=== PATIENT | female | born 1955 | race American Indian/Alaskan Native ===

== ENCOUNTER 2018-04-17 20:06 | Emergency (ER) | payer MEDICARE ==
[2018-04-17 20:06] VITALS: BMI 34.2
[2018-04-17] MEDS ORDERED: Iohexol 240 (50 ml) PO ONE (20:44)
[2018-04-17] MEDS ORDERED: Sodium Chloride 0.9% 1,000 ML IV STA (20:45)
[2018-04-17] MEDS ORDERED: Iohexol 240 (50 ml) ONE (21:25)
[2018-04-17 21:35] LABS: BASO # 0.1 K/uL (0.0-0.2); BASO % 0.4 % (0.0-2.0); EOS % 0.3 % (0.0-4.0); LYMPH % 7.6 % (20.0-40.0); MEAN CELL VOLUME 66.4 fl (81.0-99.0); MEAN CORPUSCULAR HEMOGLOBIN 20.9 pg (27.0-31.0); MEAN CORPUSCULAR HGB CONC 31.5 g/dL (33.0-37.0); MEAN PLATELET VOLUME 10.7 fl (7.2-11.7); MONO # 0.4 K/uL (0.0-0.8); MONO % 3.5 % (0.0-10.0); NEUT # 11.3 K/uL (1.8-7.0); NEUT % 88.2 % (50.0-75.0); NRBC % 0.2 % (0.0-0.0); PLATELET COUNT 340 K/uL (130-400); RBC 6.71 Mil/uL (3.80-5.20); RED CELL DISTRIBUTION WIDTH 17.4 % (11.5-14.5); WHITE BLOOD COUNT 12.8 K/uL (4.8-10.8)
[2018-04-17 21:44] LABS: ALBUMIN 4.7 g/dL (3.5-5.0); GFR AFRICAN-AMERICAN > 60; GFR NON-AFRICAN AMERICAN > 60; LIPASE 100 U/L (23-300)
[2018-04-17 21:50] LABS: ALT/SGPT 56 U/L (9-52); AST/SGOT 41 U/L (14-36); BLOOD UREA NITROGEN 22 mg/dl (7-17)
--- NOTE | 2018-04-17 21:50 | ED PDOC ---
HPI: Abdomen Time Seen by Provider: 04/17/18 20:26 Chief Complaint (Nursing): Abdominal Pain Chief Complaint (Provider): Abdominal Pain History Per: Patient History/Exam Limitations: no limitations Onset/Duration Of Symptoms: Hrs Current Symptoms Are (Timing): Still Present Additional Complaint(s): 62 year old female presents to the emergency department with a complaint of an abdominal pain and diarrhea that started around 11am today, 04/17/2018. Reports she had about 20 episodes of watery, non bloody diarrhea with a lot of raw skin in the rectal region due to all of the diarrhea. Associated with nausea, loss of appetite, chills, body aches, and weakness. States when she tries to eat or drink anything it exacerbates the diarrhea and abdominal pain. Patient had ground beef at 9am this morning and thinks that might have been the source although daughter ate the same and is fine. Denies vomiting, recent travel, known sick contacts, or recent antibiotics. PMD: Dr. Macho Doll MD Past Medical History Reviewed: Historical Data, Nursing Documentation, Vital Signs Vital Signs: Last Vital Signs Temp 98 F 04/18/18 01:21 Pulse 95 H 04/18/18 01:21 Resp 16 04/18/18 01:21 BP 160/91 H 04/18/18 01:21 Pulse Ox 96 04/18/18 01:49 - Medical History PMH: HTN - Surgical History Other surgeries: Hysterectomy - Family History Family History: States: No Known Family Hx - Social History Current smoker - smoking cessation education provided: No Ex-Smoker (has not smoked in the last 12 months): Yes (2012) Alcohol: None Drugs: Denies - Home Medications Home Medications: Ambulatory Orders Medication Instructions Recorded Naproxen 1 tab PO Q12 PRN #14 tab 10/05/17 Dicyclomine [Bentyl] 20 mg PO Q12 PRN #20 tab 04/18/18 - Allergies Allergies/Adverse Reactions: Allergies Allergy/AdvReac Type Severity Reaction Status Date / Time shrimp Allergy RASH Verified 04/17/18 20:17 Review of Systems ROS Statement: Except As Marked, All Systems Reviewed And Found Negative (As per HPI, otherwise negative) Constitutional: Positive for: Chills, Weakness (body aches). Negative for: Other (recent tavel, known sick contacts, or recent antibiotics) Gastrointestinal: Positive for: Nausea, Abdominal Pain, Diarrhea, Other (Loss of appetite). Negative for: Vomiting Physical Exam - Reviewed Nursing Documentation Reviewed: Yes Vital Signs Reviewed: Yes - Physical Exam Appears: Positive for: In Acute Distress (mid gastrointestinal distress) Head Exam: Positive for: NORMAL INSPECTION Skin: Positive for: Warm, Dry ENT: Positive for: Normal ENT Inspection (Dry mucous membranes), Pharynx Is ( Clear) Neck: Positive for: Painless ROM, Supple Cardiovascular/Chest: Positive for: Regular Rate, Rhythm. Negative for: Murmur Respiratory: Positive for: Normal Breath Sounds. Negative for: Respiratory Distress Gastrointestinal/Abdominal: Positive for: Soft, Tenderness (Diffuse tenderness to palpation. Worse on the left lower quadrant. ). Negative for: Normal Exam, Mass, Guarding, Rebound, Other (negative [place] and [place] point tenderness) Back: Positive for: Normal Inspection. Negative for: Decreased ROM Extremity: Positive for: Normal ROM. Negative for: Deformity Lymphatic: Negative for: Adenopathy Neurologic/Psych: Positive for: Alert, Oriented (x3). Negative for: Motor/ Sensory Deficits - Laboratory Results Result Diagrams: 04/17/18 21:14 04/17/18 21:14 - ECG O2 Sat by Pulse Oximetry: 96 (RA) Pulse Ox Interpretation: Normal Medical Decision Making Medical Decision Making: Time:2113 Initial impression: Abdominal pain and diarrhea. Differential include colitis, diverticulitis, enteritis, dehydration, and electrolyte abnormality Initial plan: Chemistry and lab work up Bentyl 20 mg PO Iohexol 50 ml PO Sodium chlorid e1L IV Ondansetron 4 mg PO Abd & Pelvis CT with PO & IV Contrast Reevaluation [address] Mccann. Pending ER workup reassessment and final ER disposition Scribe Attestation: Documented by Daylin Maldonado, acting as a scribe for Ladi Reddy MD Provider Scribe Attestation: All medical record entries made by the Scribe were at my direction and personally dictated by me. I have reviewed the chart and agree that the record accurately reflects my personal performance of the history, physical exam, medical decision making, and the department course for this patient. I have also personally directed, reviewed, and agree with the discharge instructions and disposition Disposition - Clinical Impression Clinical Impression: Abdominal pain - Disposition Disposition: Transfer of Care Disposition Time: 00:00 Condition: STABLE Prescriptions: Dicyclomine [Bentyl] 20 mg PO Q12 PRN #20 tab PRN Reason: diarrhea/abdominal pain Instructions: Gastroenteritis (ED) Forms: [facility] (Tajik) Patient Signed Over To: Adolfo Mccann (00:00) Handoff Comments: Pending CT
[2018-04-17 22:52] LABS: ANISOCYTOSIS SLIGHT; EOSINOPHIL 1 % (0-7); NEUTROPHIL 86 % (42-75); PLATELET ESTIMATE NORMAL (NORMAL); TOTAL CELLS COUNTED 100
[2018-04-17 22:53] LABS: MICROCYTOSIS SLIGHT; OVALOCYTES SLIGHT; TARGET CELLS SLIGHT
[2018-04-17 23:03] VITALS: RESP 16
[2018-04-17 23:05] LABS: LYMPHOCYTE 11 % (20-50); MONOCYTE 2 % (0-10)
--- NOTE | 2018-04-18 00:22 | CT ---
EXAM: CT Abdomen and Pelvis With Intravenous Contrast CLINICAL HISTORY: 62 years old, female; Pain; Abdominal pain; Localized; Left lower quadrant (llq); Prior surgery; Surgery date: 6+ months; Surgery type: Hysterectomy. Back surgery; Additional info: Llq pain diarrhea TECHNIQUE: Axial computed tomography images of the abdomen and pelvis with intravenous contrast. All CT scans at this facility use one or more dose reduction techniques, viz.: automated exposure control; ma/kV adjustment per patient size (including targeted exams where dose is matched to indication; i.e. head); or iterative reconstruction technique. Coronal and sagittal reformatted images were created and reviewed. COMPARISON: No relevant prior studies available. FINDINGS: Lung bases: There is minimal bibasilar atelectasis. ABDOMEN: Liver: The liver is within normal limits for this noncontrast study. Gallbladder and bile ducts: The gallbladder is contracted but otherwise normal. No calcified stones. No ductal dilation. Pancreas: Unremarkable. No mass. No ductal dilation. Spleen: Unremarkable. No splenomegaly. Adrenals: Unremarkable. No mass. Kidneys and ureters: Unremarkable. No solid mass. No hydronephrosis. Stomach and bowel: No obstruction. No mucosal thickening. Minimal diverticulosis is present in the sigmoid colon. No acute diverticulitis. PELVIS: Appendix: A normal appendix is identified. Bladder: Unremarkable. No mass. Reproductive: Hysterectomy. ABDOMEN and PELVIS: Intraperitoneal space: Unremarkable. No free air. No significant fluid collection. Bones/joints: Right sixth and seventh chronic posterior fractures. Soft tissues: Unremarkable. Vasculature: Unremarkable. No abdominal aortic aneurysm. Lymph nodes: Unremarkable. No enlarged lymph nodes. IMPRESSION: No acute intra-abdominal pelvic findings. Sigmoid diverticulosis. No acute diverticulitis. Chronic right posterior rib fractures.
--- NOTE | 2018-04-18 00:27 | ED PDOC ---
- Laboratory Results Result Diagrams: 04/17/18 21:14 04/17/18 21:14 - ECG O2 Sat by Pulse Oximetry: 96 (RA) Medical Decision Making Medical Decision Makin:00 -Patient endorsed to me by Dr. Reddy, pending CT abdomen. 00:22 Abdomen/Pelvis CT FINDINGS: Lung bases: There is minimal bibasilar atelectasis. ABDOMEN: Liver: The liver is within normal limits for this noncontrast study. Gallbladder and bile ducts: The gallbladder is contracted but otherwise normal. No calcified stones. No ductal dilation. Pancreas: Unremarkable. No mass. No ductal dilation. Spleen: Unremarkable. No splenomegaly. Adrenals: Unremarkable. No mass. Kidneys and ureters: Unremarkable. No solid mass. No hydronephrosis. Stomach and bowel: No obstruction. No mucosal thickening. Minimal diverticulosis is present in the sigmoid colon. No acute diverticulitis. PELVIS: Appendix: A normal appendix is identified. Bladder: Unremarkable. No mass. Reproductive: Hysterectomy. ABDOMEN and PELVIS: Intraperitoneal space: Unremarkable. No free air. No significant fluid collection. Bones/joints: Right sixth and seventh chronic posterior fractures. Soft tissues: Unremarkable. Vasculature: Unremarkable. No abdominal aortic aneurysm. Lymph nodes: Unremarkable. No enlarged lymph nodes. IMPRESSION: No acute intra-abdominal pelvic findings. Sigmoid diverticulosis. No acute diverticulitis. Chronic right posterior rib fractures. Disposition - Clinical Impression Clinical Impression: Gastroenteritis - POA Present On Arrival: None - Disposition Disposition: Routine/Home Disposition Time: 00:30 Condition: STABLE Prescriptions: Dicyclomine [Bentyl] 20 mg PO Q12 PRN #20 tab PRN Reason: diarrhea/abdominal pain Instructions: Gastroenteritis (ED) Forms: [facility] (Nepali)
[2018-04-18 01:22] VITALS: BP 160/91; PULSE 95; TEMP 98
[2018-04-18 01:50] VITALS: O2SAT 96
== END 2018-04-18 01:00 | disposition home or self-care (01) ==
LOC: H.ER 20:06
DX: K52.9 Noninfective gastroenteritis and colitis, unspecified (principal); I10 Essential (primary) hypertension
CPT/HCPCS: 74176; 80053; 83605; 83690; 85025; 87040; 96360; 99283; J7040; Q9966